=== PATIENT | male | born 1980 | race African-American/Black ===

== ENCOUNTER 2025-02-08 13:45 | Emergency (ER) | payer OTHER ==
[~2025-02-08] VITALS: Ht 190.5 cm; Wt 117.0 kg
[2025-02-08 13:47] VITALS: TEMP 36.9; O2SAT 99
[2025-02-08] MEDS ORDERED: NAPR-677 MT (15:02)
[2025-02-08] MEDS ORDERED: LIDO-53 TP (15:02)
[2025-02-08] MEDS ORDERED: ACET-2708 MT (15:02)
[2025-02-08] MEDS ORDERED: CYCL10TA21 MT (15:02)
[2025-02-08 15:30] VITALS: BP 142/97; PULSE 73; RESP 18; O2SAT 100
== END 2025-02-08 15:30 | disposition home or self-care (01) ==
LOC: ER 13:45
DX: M54.50 Low back pain, unspecified (principal); Z79.899 Other long term (current) drug therapy
CPT/HCPCS: 99283; Z7610